=== PATIENT | female | born 1950 | race Caucasian/White ===

== ENCOUNTER 2018-01-20 14:57 | Emergency (ER) | payer OTHER ==
[~2018-01-20] VITALS: Ht 160 cm; Wt 65.8 kg
[2018-01-20] MEDS ORDERED: METFORMIN HCL500 MG (15:26)
[2018-01-20] MEDS ORDERED: SYNTHROID75 MCG (15:27)
[2018-01-20] MEDS ORDERED: SIMVASTATIN5 MG (15:27)
== END 2018-01-20 17:05 | disposition home or self-care (01) ==
LOC: ER 14:57
DX: H11.32 Conjunctival hemorrhage, left eye (principal); T65.894A Toxic effect of other specified substances, undetermined, initial encounter; Y92.89 Other specified places as the place of occurrence of the external cause

== ENCOUNTER 2018-11-03 17:35 | Emergency (ER) | payer OTHER ==
[~2018-11-03] VITALS: Ht 157.5 cm; Wt 63.5 kg
[~2018-11-03 17:35] MED LIST: METFORMIN HCL500 MG; SIMVASTATIN5 MG; SYNTHROID75 MCG
== END 2018-11-03 20:13 | disposition home or self-care (01) ==
LOC: ER 17:35
DX: S80.02XA Contusion of left knee, initial encounter (principal); M25.562 Pain in left knee; W01.198A Fall on same level from slipping, tripping and stumbling with subsequent striking against other object, initial encounter; Y93.89 Activity, other specified; Y92.512 Supermarket, store or market as the place of occurrence of the external cause; Y99.8 Other external cause status